=== PATIENT | male | born 1950 | race Caucasian/White ===

== ENCOUNTER 2019-03-02 05:13 | Day surgery (SDC) | payer MEDICARE, BC ==
[2019-03-02] VITALS (9 sets, daily range): BP systolic 129–154; BP diastolic 76–86
[~2019-03-02] VITALS: Ht 180.3 cm; Wt 86.5 kg
[2019-03-02] MEDS ORDERED: LISI10TA4 PO (05:36)
[2019-03-02] MEDS ORDERED: LORazepam 0.5 MG tablet PO PRN (05:40)
[2019-03-02] MEDS ORDERED: normal saline 1,000 ML IV SCH (05:40)
[2019-03-02] MEDS ORDERED: diphenhydrAMINE 25mg capsule PO PRN (05:40)
[2019-03-02 05:53] LABS: BASOPHILS # (AUTO) 0.1 X10'3 (0-0.2); BASOPHILS % (AUTO) 1.2 % (0-1); EOSINOPHILS # (AUTO) 0.5 X10'3 (0-0.9); EOSINOPHILS % (AUTO) 7.1 % (0-6); HEMATOCRIT 39.9 % (42.0-52.0); HEMOGLOBIN 14.3 g/dl (14.0-17.9); LYMPHOCYTES # (AUTO) 1.9 X10'3 (1.1-4.8); LYMPHOCYTES % (AUTO) 28.1 % (21-51); MEAN CORPUSCULAR HEMOGLOBIN 33.8 PG (27.0-31.0); MEAN CORPUSCULAR HGB CONC 35.7 g/dL (33.0-36.5); MEAN CORPUSCULAR VOLUME 94.7 FL (78-98); MEAN PLATELET VOLUME 7.3 FL (7.4-10.4); MONOCYTES # (AUTO) 0.7 X10'3 (0-0.9); MONOCYTES % (AUTO) 10.3 % (2-12); NEUTROPHILS # (AUTO) 3.5 X10'3 (1.8-7.7); NEUTROPHILS % (AUTO) 53.3 % (42-75); PLATELET COUNT 236 X10'3 (140-440); RED BLOOD COUNT 4.21 X10'6 (4.70-6.10); RED CELL DISTRIBUTION WIDTH 12.2 % (11.5-14.5); WHITE BLOOD COUNT 6.6 X10'3 (4.5-11.0)
[2019-03-02] MEDS ORDERED: LIDOcaine/PRILOcaine 5gm cream TP PRN (05:55)
[2019-03-02 05:56] LABS: ANION GAP 11 (8-16); BLOOD UREA NITROGEN 13 MG/DL (7-18); BUN/CREATININE RATIO 12.6 (5.4-32.0); CALCIUM 9.2 MG/DL (8.5-10.1); CHLORIDE 105 MMOL/L (99-107); CREATININE 1.03 MG/DL (0.60-1.10); GLUCOSE 101 MG/DL (70-104); POTASSIUM 4.2 MMOL/L (3.5-5.1); SODIUM 141 MMOL/L (135-145); TOTAL CARBON DIOXIDE 25.1 MMOL/L (24-32); eGFR 72 ML/MIN
[2019-03-02 05:59] LABS: PARTIAL THROMBOPLASTIN TIME 28 SECONDS (22-32)
[2019-03-02] MEDS ORDERED: nitroGLYCERIN-Tridil 50MG/D5W 250 ML IV ONE (06:04)
[2019-03-02] MEDS ORDERED: fentaNYL/PF 50MCG/1 ML 2ML syringe ONE (06:04)
[2019-03-02] MEDS ORDERED: midazolam 2 mg/2 ml injection ONE (06:04)
[2019-03-02] MEDS ORDERED: verapamil 2.5 mg/ml inj IV ONE (06:04)
[2019-03-02] MEDS ORDERED: heparin 1,000unit/ml 10ml vial 10 ML ONE (06:05)
[2019-03-02] MEDS ORDERED: heparin 1,000 UNITS/NS 500ml 500 ML ONE (06:05)
[2019-03-02] MEDS ORDERED: LIDOcaine 1% (10mg/ml)w/preservative injection 20ml MDV ONE (06:05)
[2019-03-02] MEDS ORDERED: iohexol 350MG/ML 100ml bottle IV ONE (06:05)
--- NOTE | 2019-03-02 07:15 | NUR ---
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 Patient laying flat for 2 hours via perc. close to the right groin. Vitals are temp. 97.8, 98% on room air, BP 139/81, HR 73, RR 16. Patient is awake and in no acute distress. Bed locked and lowered, side rails up x 2, nonskid socks on, call light in reach, and frequent rounding.
[2019-03-02] MEDS ORDERED: acetaminophen 325mg tablet PO PRN (07:30)
[2019-03-02] MEDS ORDERED: HYDROcodone/acetaminophen 5mg/325mg tablet PO PRN (07:30)
[2019-03-02] MEDS ORDERED: ondansetron/PF 4mg/2ml inj IV PRN (07:30)
[2019-03-02] MEDS ORDERED: proCHLORperazine 10 MG/2 ml inj IV PRN (07:30)
[2019-03-02] MEDS ORDERED: HYDROcodone/acetaminophen 10/325mg tab PO PRN (07:30)
[2019-03-02] MEDS ORDERED: OXAZEpam 15mg capsule PO PRN (07:30)
[2019-03-02] MEDS ORDERED: NITR0.4T51 SL (10:01)
[2019-03-02] MEDS ORDERED: METO25TA6 PO (10:01)
[2019-03-02] MEDS ORDERED: ASPI81TA52 PO (10:01)
[2019-03-02] MEDS ORDERED: ATOR40TA PO (10:01)
--- NOTE | 2019-03-02 10:11 | NUR ---
Sent a page to respiratory for PFT and ABG.
--- NOTE | 2019-03-02 11:03 | NUR ---
Sent a page to vascular letting them know that the patient's discharge is pending studies.
[2019-03-02 13:00] LABS: ABG BASE EXCESS -1.2 mmol/L (-2.0-3.0); ABG HCO3 22.3 mmol/L (22.0-26.0); ABG OXYGEN SATURATION 94.9 % (95-98); ABG PCO2 (T) 33.7 mmHg (35.0-45.0); ABG PH (T) 7.438 (7.350-7.450); ABG PO2 (T) 72.7 mmHg (83-108); ALLEN'S TEST Positive; FCOHb 1.1 % (0.5-1.5); FMetHb 0.2 % (0.3-1.12); FO2Hb 93.7 % (94-100); TOTAL HEMOGLOBIN 13.9 G/dl (14.0-17.9)
--- NOTE | 2019-03-02 14:08 | NUR ---
Rm [id number]. Patient is ready for xray. Thank you
--- NOTE | 2019-03-02 14:54 | NUR ---
Called in patient's prescriptions to [facility] on [facility].
--- NOTE | 2019-03-02 15:40 | NUR ---
Patient stable for discharge per MD orders. All instructions and paperwork reviewed with patient. Called in patient's prescription to [facility] on [address]. PIV discontinued and cannula intact. quality assurance monitor chassis discontinued. Belongings collected and sent with patient. Patient will follow up with his primary care provider. Patient picked up by private vehicle and wheeled to the lobby.
[2019-03-11] MEDS ORDERED: TURM538C PO (13:34)
[2019-03-11] MEDS ORDERED: JUICE PLUS PO (13:34)
[2019-03-11] MEDS ORDERED: [UNRECOGNIZED DRUG - CODE] PO (13:34)
== END 2019-03-02 15:40 | disposition home or self-care (01) ==
LOC: SSTAY O 05:13 → PCU 3S 07:27 → SSTAY O 15:40
PROVIDERS: ATTEND Internal Medicine Interventional Cardiology
DX: I25.10 Atherosclerotic heart disease of native coronary artery without angina pectoris (principal); R07.9 Chest pain, unspecified; R94.39 Abnormal result of other cardiovascular function study; I10 Essential (primary) hypertension; E78.00 Pure hypercholesterolemia, unspecified; R00.0 Tachycardia, unspecified; Z98.890 Other specified postprocedural states; Z79.899 Other long term (current) drug therapy; F12.90 Cannabis use, unspecified, uncomplicated; Z82.49 Family history of ischemic heart disease and other diseases of the circulatory system; Z87.81 Personal history of (healed) traumatic fracture
CPT/HCPCS: 36415; 71046; 80048; 82803; 85018; 85025; 85610; 85730; 93005; 93459; 94010; C1769; C1894; J1644; J2001; J2250; J3010; J7030; Q0163; Q9967; 36600; 93880; 93931; 93970; 99152; 99153; A4620; A6258; C1760; G0378; J3490

== ENCOUNTER 2019-03-12 05:24 | Inpatient (IN) | payer MEDICARE, BC ==
[2019-03-11 13:47] LABS: BASOPHILS # (AUTO) 0.1 X10'3 (0-0.2); BASOPHILS % (AUTO) 1.1 % (0-1); EOSINOPHILS # (AUTO) 0.2 X10'3 (0-0.9); LYMPHOCYTES # (AUTO) 1.5 X10'3 (1.1-4.8); LYMPHOCYTES % (AUTO) 20.3 % (21-51); MEAN CORPUSCULAR HEMOGLOBIN 33.6 PG (27.0-31.0); MEAN CORPUSCULAR VOLUME 95.9 FL (78-98); MEAN PLATELET VOLUME 7.6 FL (7.4-10.4); MONOCYTES # (AUTO) 0.9 X10'3 (0-0.9); NEUTROPHILS # (AUTO) 4.5 X10'3 (1.8-7.7); NEUTROPHILS % (AUTO) 62.6 % (42-75); PRE OP HEMATOCRIT 37.7 % (42.0-52.0); PRE OP HEMOGLOBIN 13.2 g/dL (14.0-17.9); PRE OP PLATELET COUNT 224 X10'3 (140-440); RED BLOOD COUNT 3.93 X10'6 (4.70-6.10); RED CELL DISTRIBUTION WIDTH 12.1 % (11.5-14.5)
[2019-03-11 13:54] LABS: CLARITY,URINE CLEAR (Clear); COLOR,URINE YELLOW (Yellow); GLUCOSE, URINE NEGATIVE (Neg); KETONES,URINE NEGATIVE (Neg); LEUKOCYTE ESTERASE ,URINE NEGATIVE (Neg); NITRITES, URINE NEGATIVE (Neg); OCCULT BLOOD,URINE NEGATIVE (Neg); PH,URINE 7.5 (4.8-8.0); PROTEIN,URINE NEGATIVE (Neg); UA COLLECTION TYPE CLN CATCH MIDSTREAM; UROBILINOGEN,URINE 0.2 E.U/dL (0.2-1.0)
[2019-03-11 13:57] LABS: PRE OP PROTIME 10.3 SECONDS (9.0-12.0)
[2019-03-11 13:59] LABS: ALBUMIN 3.9 G/DL (3.4-5.0); ALKALINE PHOSPHATASE 103 IU/L (46-116); BLOOD UREA NITROGEN 13 MG/DL (7-18); BUN/CREATININE RATIO 15.1 (5.4-32.0); CALCIUM 9.3 MG/DL (8.5-10.1); CHLORIDE 105 MMOL/L (99-107); CREATININE 0.86 MG/DL (0.60-1.10); PRE OP ALT 33 U/L (30-65); PRE OP ANION GAP 7 (8-16); PRE OP AST 22 U/L (10-37); PRE OP BILIRUB, TOTAL 0.6 MG/DL (0.0-1.0); PRE OP GLUCOSE 95 MG/DL (70-104); PRE OP POTASSIUM 4.2 MMOL/L (3.4-5.1); PRE OP SODIUM 139 MMOL/L (135-145); TOTAL CARBON DIOXIDE 26.7 MMOL/L (24-32); TOTAL PROTEIN 7.7 G/DL (6.4-8.2); eGFR 88 ML/MIN
[2019-03-11 14:04] LABS: HEMOGLOBIN A1C 5.3 % (4.5-6.2)
[2019-03-11 14:10] LABS: ABG BASE EXCESS -4.5 mmol/L (-2.0-3.0); ABG HCO3 18.2 mmol/L (22.0-26.0); ABG OXYGEN SATURATION 96.7 % (95-98); ABG PCO2 (T) 27.3 mmHg (35.0-45.0); ABG PH (T) 7.441 (7.350-7.450); ABG PO2 (T) 87.2 mmHg (83-108); ALLEN'S TEST Positive; FCOHb 0.6 % (0.5-1.5); FMetHb 0.3 % (0.3-1.12); FO2Hb 95.8 % (94-100); TOTAL HEMOGLOBIN 13.5 G/dl (14.0-17.9)
[~2019-03-12] VITALS: Ht 177.8 cm; Wt 90.2 kg
[2019-03-12] VITALS (16 sets, daily range): BP systolic 95–155; BP diastolic 49–92
[~2019-03-12 05:24] MED LIST: ASPI81TA52 PO; ATOR40TA PO; JUICE PLUS PO; LISI10TA4 PO; METO25TA6 PO; NITR0.4T51 SL; ROPIVAcaine 0.5% (5mg/ml) 30ml vial ONE; TURM538C PO; [UNRECOGNIZED DRUG - CODE] PO; lactose-reduced food (Ensure Enlive) - 237ml bottle PO ONE; ringers solution, lacted 1,000 ML IV SCH
[2019-03-12] MEDS ORDERED: cefazolin/dext.iso 2gm/100ml 100 ML IV ONE (05:30)
[2019-03-12] MEDS ORDERED: famotidine 20mg tablet PO ONE (05:30)
[2019-03-12] MEDS ORDERED: vancomycin inj 1,500 MG in normal saline 300ml IV soln IV ONE (05:30)
[2019-03-12] MEDS ORDERED: dextrose 50%-water 50ml dispensing syringe IV PRN ×2 (05:30→12:05)
[2019-03-12] MEDS ORDERED: LORazepam 2 mg/ml vial IV PRN (05:30)
[2019-03-12] MEDS ORDERED: metoprolol tartrate 12.5mg (1/2 tablet) PO ONE (05:30)
[2019-03-12] MEDS ORDERED: insulin regular, human inj. 100 UNITS in normal saline 100ml IV IV SCH ×2 (05:30)
[2019-03-12] MEDS ORDERED: gabapentin 400mg capsule PO ONE (05:30)
[2019-03-12] MEDS ORDERED: LIDOcaine 1% (10mg/ml) 2ml vial ONE (06:02)
[2019-03-12] MEDS: mupirocin 2% nasal ointment 1gm UD NS SCH ×3 (06:12→20:16)
[2019-03-12] MEDS ORDERED: protamine sulf. 10mg/ml inj. IV ONE (06:52)
[2019-03-12] MEDS ORDERED: sevoflurane 250ml liquid IH ONE (06:52)
[2019-03-12] MEDS ORDERED: nitroGLYCERIN in D5W 50mg/250ml (Tridil) infusion IV ONE (06:52)
[2019-03-12] MEDS ORDERED: DOPamine/D5W 400mg/250ml bag IV ONE (06:52)
[2019-03-12] MEDS ORDERED: nitroPRUSSIDE 20mg/NS 100mL (0.2mg/mL) VIAL IV ONE (06:52)
[2019-03-12] MEDS ORDERED: niCARDipine in NS 40mg/200ml (0.2mg/ml) IVPB IV ONE (06:52)
[2019-03-12] MEDS ORDERED: aminocaproic acid 250 MG/1 ML inj. ONE ×2 (06:52→14:00)
[2019-03-12] MEDS ORDERED: MIDAZolam 5mg/5ml vial ONE (06:58)
[2019-03-12] MEDS ORDERED: SUFENTANIL CITRATE 50 MCG/ML 2ml ampule IV ONE (06:58)
[2019-03-12] MEDS ORDERED: propofol inj 20 ML IV ONE (06:59)
[2019-03-12 07:55] LABS: ABG BASE EXCESS -4.1 mmol/L (-2.0-3.0); ABG HCO3 20.4 mmol/L (22.0-26.0); ABG OXYGEN SATURATION 99.4 % (95-98); ABG PCO2 35.6 mmHg (35.0-45.0); ABG PH 7.377 (7.350-7.450); ABG PO2 355.5 mmHg (60.0-100.0); CL (ABG) 108 mmol/L (99-107); FCOHb 0.4 % (0.5-1.5); FMetHb 0.4 % (0.3-1.12); FO2Hb 98.6 % (94-100); GLUCOSE (ABG) 86 mg/dl (70-104); IONIZED CA (ABG) 1.17 mmol/L (1.03-1.32); K (ABG) 3.9 mmol/L (3.3-5.1); NA (ABG) 137 mmol/L (135-145); TOTAL HEMOGLOBIN 11.7 G/dl (14.0-17.9)
[2019-03-12 08:00] LABS: ACT @ 1.70 U 278 SEC (193-297); ACT @ 2.84 U 390 SEC (260-420); BASELINE ACT 137 SEC (101-148); PATIENT WEIGHT 86.0k KG
[2019-03-12] MEDS ORDERED: rocuronium 10mg/ml inj IV ONE ×3 (09:02)
[2019-03-12 09:21] LABS: ABG BASE EXCESS VENOUS -4.1 mmol/L; ABG PCO2 VENOUS 38.5 mmHg; ABG PO2 VENOUS 40.2 mmHg; CL (ABG) 108 mmol/L (99-107); FHHb VENOUS 26.8 %; FMetHb VENOUS 0.1 %; FO2Hb VENOUS 72.1 %; GLUCOSE (ABG) 102 mg/dl (70-104); IONIZED CA (ABG) 1.15 mmol/L (1.03-1.32); K (ABG) 3.9 mmol/L (3.3-5.1); NA (ABG) 137 mmol/L (135-145); TOTAL HEMOGLOBIN 11.7 G/dl (14.0-17.9)
[2019-03-12 09:55] LABS: ABG BASE EXCESS VENOUS -2.6 mmol/L; ABG HCO3 VENOUS 22.1 mmol/L; ABG PCO2 VENOUS 37.8 mmHg; ABG PO2 VENOUS 40.3 mmHg; CL (ABG) 105 mmol/L (99-107); FCOHb VENOUS 1.2 %; FHHb VENOUS 24.9 %; FMetHb VENOUS 0.3 %; FO2Hb VENOUS 73.6 %; GLUCOSE (ABG) 116 mg/dl (70-104); IONIZED CA (ABG) 0.98 mmol/L (1.03-1.32); K (ABG) 4.9 mmol/L (3.3-5.1); NA (ABG) 134 mmol/L (135-145); TOTAL HEMOGLOBIN 8.9 G/dl (14.0-17.9)
[2019-03-12 10:00] LABS: ABG BASE EXCESS -1.7 mmol/L (-2.0-3.0); ABG HCO3 22.8 mmol/L (22.0-26.0); ABG OXYGEN SATURATION 99.4 % (95-98); ABG PCO2 37.1 mmHg (35.0-45.0); ABG PH 7.406 (7.350-7.450); ABG PO2 405.3 mmHg (60.0-100.0); CL (ABG) 106 mmol/L (99-107); FCOHb 0.8 % (0.5-1.5); FMetHb 0.4 % (0.3-1.12); FO2Hb 98.2 % (94-100); GLUCOSE (ABG) 117 mg/dl (70-104); IONIZED CA (ABG) 0.99 mmol/L (1.03-1.32); K (ABG) 5.4 mmol/L (3.3-5.1); NA (ABG) 133 mmol/L (135-145); TOTAL HEMOGLOBIN 8.9 G/dl (14.0-17.9)
[2019-03-12 10:30] LABS: ABG PCO2 42.9 mmHg (35.0-45.0); ABG PH 7.308 (7.350-7.450)
[2019-03-12 10:31] LABS: ABG PO2 318.9 mmHg (60.0-100.0); CL (ABG) 107 mmol/L (99-107); FCOHb 0.3 % (0.5-1.5); FMetHb 0.4 % (0.3-1.12); FO2Hb 98.3 % (94-100); GLUCOSE (ABG) 167 mg/dl (70-104); IONIZED CA (ABG) 1.06 mmol/L (1.03-1.32); K (ABG) 4.7 mmol/L (3.3-5.1); NA (ABG) 136 mmol/L (135-145); TOTAL HEMOGLOBIN 9.8 G/dl (14.0-17.9)
[2019-03-12 10:51] LABS: ABG BASE EXCESS -2.6 mmol/L (-2.0-3.0); ABG HCO3 22.8 mmol/L (22.0-26.0); ABG OXYGEN SATURATION 99.1 % (95-98); ABG PCO2 41.7 mmHg (35.0-45.0); ABG PH 7.355 (7.350-7.450); ABG PO2 262.6 mmHg (60.0-100.0); CL (ABG) 106 mmol/L (99-107); FCOHb 0.5 % (0.5-1.5); FMetHb 0.5 % (0.3-1.12); FO2Hb 98.1 % (94-100); GLUCOSE (ABG) 209 mg/dl (70-104); IONIZED CA (ABG) 1.02 mmol/L (1.03-1.32); K (ABG) 4.8 mmol/L (3.3-5.1); NA (ABG) 133 mmol/L (135-145); TOTAL HEMOGLOBIN 8.8 G/dl (14.0-17.9)
[2019-03-12 11:21] LABS: ABG BASE EXCESS VENOUS -1.9 mmol/L; ABG HCO3 VENOUS 23.6 mmol/L; ABG PCO2 VENOUS 43.6 mmHg; ABG PO2 VENOUS 49.8 mmHg; CL (ABG) 106 mmol/L (99-107); FCOHb VENOUS 0.6 %; FHHb VENOUS 16.8 %; FMetHb VENOUS 0.5 %; FO2Hb VENOUS 82.1 %; GLUCOSE (ABG) 214 mg/dl (70-104); IONIZED CA (ABG) 1.22 mmol/L (1.03-1.32); NA (ABG) 137 mmol/L (135-145); TOTAL HEMOGLOBIN 9.2 G/dl (14.0-17.9)
[2019-03-12] MEDS ORDERED: acetaminophen 1,000mg/100ml IV 100 ML IV ONE (11:43)
[2019-03-12 11:45] LABS: ACTIVATED CLOTTING TIME 114 SEC (101-148)
--- NOTE | 2019-03-12 12:00 | NUR ---
Received to room 2012, accompanied by MDs and surgical crew. Placed on ventilator, to paring machine operator, arterial line and PA line pressure monitored. Chest tubes to suction at 20 cm. Olivarez cath to gravity drainage. Dressings are dry and intact. See assessment record. All vasoactive drugs are infusing via central line.
[2019-03-12] MEDS ORDERED: magnesium 2GM in 50ml NS 50 ML IV PRN (12:05)
[2019-03-12] MEDS ORDERED: nitroGLYCERIN-Tridil 50MG/D5W 250 ML IV PRN (12:05)
[2019-03-12] MEDS ORDERED: DOPamine 400mg/D5W 250ml 250 ML IV PRN (12:05)
[2019-03-12] MEDS ORDERED: acetaminophen 325mg tablet PO PRN ×2 (12:05)
[2019-03-12] MEDS ORDERED: ondansetron/PF 4mg/2ml inj IV PRN (12:05)
[2019-03-12] MEDS ORDERED: potassium Cl 20 mEq SR tablet PO PRN (12:05)
[2019-03-12] MEDS ORDERED: pantoprazole 40 MG vial IV ONE (12:05)
[2019-03-12] MEDS ORDERED: sodium phosphate inj. 15 MMOL in dextrose 5%-water 150 ML IV PRN (12:05)
[2019-03-12] MEDS ORDERED: sodium phosphate inj. 30 MMOL in dextrose 5%-water 250 ML IV PRN (12:05)
[2019-03-12] MEDS ORDERED: morphine 4 MG/ML inj SYRINge IV PRN ×2 (12:05)
[2019-03-12] MEDS ORDERED: magnesium hydroxide 30ml (MOM) UD suspension PO PRN (12:05)
[2019-03-12] MEDS ORDERED: insulin regular, human inj. 100 UNITS in normal saline 100ml IV soln 100 ML IV SCH ×2 (12:05)
[2019-03-12] MEDS ORDERED: Neutra Phos packet PO PRN (12:05)
[2019-03-12] MEDS ORDERED: metoclopramide 5 mg/ml inj IV PRN (12:05)
[2019-03-12] MEDS ORDERED: normal saline 250ml IV soln 250 ML IV PRN (12:05)
[2019-03-12] MEDS ORDERED: niCARDipine-NS 40mg/200ml IVPB 200 ML IV PRN (12:05)
[2019-03-12 12:31] LABS: ABG BASE EXCESS -0.6 mmol/L (-2.0-3.0); ABG HCO3 24.4 mmol/L (22.0-26.0); ABG OXYGEN SATURATION 95.1 % (95-98); ABG PCO2 (T) 41.7 mmHg (35.0-45.0); ABG PH (T) 7.385 (7.350-7.450); ABG PO2 (T) 83.4 mmHg (83-108); FO2Hb 95.1 % (94-100); MINUTE VOLUME 9 L/min; PEEP 5 cm H2O; RESPIRATORY RATE 12 b/min; RESPIRATORY RATE (OBSERVED) 12 b/min; TIDAL VOLUME 500 mL
[2019-03-12 12:32] LABS: BASOPHILS % (AUTO) 0.4 % (0-1); EOSINOPHILS # (AUTO) 0.1 X10'3 (0-0.9); EOSINOPHILS % (AUTO) 0.7 % (0-6); HEMATOCRIT 31.2 % (42.0-52.0); LYMPHOCYTES # (AUTO) 0.5 X10'3 (1.1-4.8); LYMPHOCYTES % (AUTO) 5.1 % (21-51); MEAN CORPUSCULAR HEMOGLOBIN 33.8 PG (27.0-31.0); MEAN CORPUSCULAR HGB CONC 35.3 g/dL (33.0-36.5); MEAN CORPUSCULAR VOLUME 95.8 FL (78-98); MEAN PLATELET VOLUME 7.6 FL (7.4-10.4); MONOCYTES # (AUTO) 0.6 X10'3 (0-0.9); MONOCYTES % (AUTO) 5.8 % (2-12); NEUTROPHILS # (AUTO) 9.2 X10'3 (1.8-7.7); PLATELET COUNT 144 X10'3 (140-440); RED BLOOD COUNT 3.26 X10'6 (4.70-6.10); RED CELL DISTRIBUTION WIDTH 12.1 % (11.5-14.5); WHITE BLOOD COUNT 10.4 X10'3 (4.5-11.0)
[2019-03-12 12:44] LABS: ALANINE AMINOTRANSFERASE 24 U/L (12-78); ALBUMIN/GLOBULIN RATIO 1.2 (1.1-1.5); ALKALINE PHOSPHATASE 71 IU/L (46-116); ANION GAP 11 (8-16); ASPARTATE AMINO TRANSFERASE 29 U/L (10-37); BILIRUBIN,TOTAL 0.7 MG/DL (0.1-1.0); BLOOD UREA NITROGEN 11 MG/DL (7-18); CALCIUM 8.5 MG/DL (8.5-10.1); CHLORIDE 108 MMOL/L (99-107); CREATININE 0.92 MG/DL (0.60-1.10); GLUCOSE 184 MG/DL (70-104); MAGNESIUM 1.9 MG/DL (1.5-2.4); PHOSPHORUS 3.3 MG/DL (2.3-4.5); POTASSIUM 4.1 MMOL/L (3.5-5.1); SODIUM 143 MMOL/L (135-145); TOTAL CARBON DIOXIDE 24.4 MMOL/L (24-32); TOTAL PROTEIN 5.5 G/DL (6.4-8.2); eGFR 82 ML/MIN
[2019-03-12 12:51] LABS: PARTIAL THROMBOPLASTIN TIME 25 SECONDS (22-32)
[2019-03-12] MEDS: insulin Lispro (HumaLOG) vial - multi-dose SQ SCH ×2 (13:00→18:00)
[2019-03-12] MEDS: potassium Cl 20mEq/100mL bag 100 ML IV PRN ×3 (13:16→18:31)
[2019-03-12] MEDS: gabapentin 300mg capsule PO SCH ×2 (13:20→20:09)
[2019-03-12] MEDS: sodium chloride 0.45% 1,000 ML IV SCH (13:43)
[2019-03-12] MEDS: magnesium 4gm in 100ml NS 100 ML IV PRN (13:47)
[2019-03-12] MEDS ORDERED: heparin 10,000 units/1 ML INJ ONE (14:00)
[2019-03-12] MEDS ORDERED: methylPREDNISolone sod. succ. 500mg inj ONE (14:00)
[2019-03-12] MEDS ORDERED: MAGNESIUM SULFATE 4 MEQ/ML (5gm/10ml) injection ONE (14:00)
[2019-03-12] MEDS ORDERED: phenylephrine 10mg/ml inj. ONE (14:00)
[2019-03-12] MEDS ORDERED: calcium chloride 100 MG/1 ML inj IV ONE (14:00)
[2019-03-12] MEDS ORDERED: albumin (human) 25% 100 ML IV solution IV ONE (14:00)
[2019-03-12] MEDS ORDERED: potassium Cl 2 mEq/ml inj IV ONE (14:00)
[2019-03-12] MEDS ORDERED: sodium bicarbonate (8.4%) 1 mEq/ml syringe ONE (14:00)
[2019-03-12] MEDS ORDERED: LIDOcaine 2% (20 mg/ml) 5ml cardiac syringe ONE (14:00)
--- NOTE | 2019-03-12 14:27 | NUR ---
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 Pt would benefit from nutrition therapy education prior to discharge once stable. Will continue to follow. Addendum: 03/12/19 at [address] Amended: Links added.
[2019-03-12] MEDS: albumin (Human) 5% 250ml 250 ML IV PRN ×2 (15:10→16:11)
--- NOTE | 2019-03-12 16:00 | NUR ---
PA line waveform appears dampened at 35cm marking. Latanya JURADO charge nurse assessed the line and manipulated to achieve more optimal waveform. Measuring now at approx 32cm. Will continue to monitor.
[2019-03-12] MEDS: ceFAZolin 1GM/D5W- ADD-VANTAGE 50 ML IV SCH (16:02)
[2019-03-12 16:05] LABS: ABG BASE EXCESS -0.6 mmol/L (-2.0-3.0); ABG HCO3 21.7 mmol/L (22.0-26.0); ABG OXYGEN SATURATION 97.6 % (95-98); ABG PCO2 (T) 29.1 mmHg (35.0-45.0); ABG PH (T) 7.491 (7.350-7.450); ABG PO2 (T) 114.5 mmHg (83-108); FCOHb 0.3 % (0.5-1.5); FO2Hb 97.3 % (94-100); MINUTE VOLUME 12 L/min; PATIENT TEMPERATURE 37.5; PEEP 5 cm H2O; RESPIRATORY RATE (OBSERVED) 26 b/min; TIDAL VOLUME 500 mL; TOTAL HEMOGLOBIN 11.7 G/dl (14.0-17.9)
--- NOTE | 2019-03-12 16:25 | NUR ---
Updated Dr. Petty about patient. MD aware of CT output at 300 and that patient required another Albumin secondary to SBP in the 80s; patient tolerated Albumin well with improvement to the SBP in the low 100s. Okay per Dr. Petty to give one more fluid challenge if necessary and start Levophed if CO/CI okay. CO/CI 6.6 and 3.2. Patient sleepy but easily arrousable and passed weaning parameters and MD aware of blood gas; okay to extubate. MD also aware of positive nasal swab for MRSA; no changes at this time. Charge nurse notified as well.
[2019-03-12 18:17] LABS: BASOPHILS % (AUTO) 0.2 % (0-1); EOSINOPHILS % (AUTO) 0 % (0-6); HEMATOCRIT 30.1 % (42.0-52.0); HEMOGLOBIN 10.5 g/dl (14.0-17.9); LYMPHOCYTES # (AUTO) 0.3 X10'3 (1.1-4.8); LYMPHOCYTES % (AUTO) 2.1 % (21-51); MEAN CORPUSCULAR HEMOGLOBIN 33.2 PG (27.0-31.0); MEAN CORPUSCULAR HGB CONC 34.8 g/dL (33.0-36.5); MEAN CORPUSCULAR VOLUME 95.4 FL (78-98); MEAN PLATELET VOLUME 7.9 FL (7.4-10.4); MONOCYTES # (AUTO) 0.5 X10'3 (0-0.9); MONOCYTES % (AUTO) 4.1 % (2-12); NEUTROPHILS # (AUTO) 11.3 X10'3 (1.8-7.7); NEUTROPHILS % (AUTO) 93.6 % (42-75); PLATELET COUNT 151 X10'3 (140-440); RED BLOOD COUNT 3.16 X10'6 (4.70-6.10); RED CELL DISTRIBUTION WIDTH 12.3 % (11.5-14.5); WHITE BLOOD COUNT 12.1 X10'3 (4.5-11.0)
[2019-03-12 18:18] LABS: ALBUMIN 3.7 G/DL (3.4-5.0); ANION GAP 6 (8-16); BLOOD UREA NITROGEN 12 MG/DL (7-18); BUN/CREATININE RATIO 11.4 (5.4-32.0); CALCIUM 8.6 MG/DL (8.5-10.1); CHLORIDE 110 MMOL/L (99-107); CREATININE 1.05 MG/DL (0.60-1.10); GLUCOSE 126 MG/DL (70-104); MAGNESIUM 2.5 MG/DL (1.5-2.4); PHOSPHORUS 1.3 MG/DL (2.3-4.5); SODIUM 142 MMOL/L (135-145); TOTAL CARBON DIOXIDE 25.8 MMOL/L (24-32); eGFR 70 ML/MIN
--- NOTE | 2019-03-12 18:32 | NUR ---
Problems reprioritized. Patient report given, questions answered & plan of care reviewed with Neema JURADO.
[2019-03-12] MEDS: vancomycin/NS 1 GM ADD-VANTAGE 250 ML IV SCH (19:56)
[2019-03-12] MEDS ORDERED: mupirocin 2% ointment 22GM NS SCH (20:00)
[2019-03-12] MEDS: docusate sod 100mg capsule PO SCH (20:00)
[2019-03-13] VITALS (24 sets, daily range): BP systolic 98–135; BP diastolic 55–74
[2019-03-13] MEDS: HYDROcodone/acetaminophen 10/325mg tab PO PRN ×5 (00:32→16:48)
[2019-03-13] MEDS: ceFAZolin 1GM/D5W- ADD-VANTAGE 50 ML IV SCH ×4 (00:32→23:53)
[2019-03-13 03:24] LABS: PARTIAL THROMBOPLASTIN TIME 27 SECONDS (22-32)
[2019-03-13 03:27] LABS: BASOPHILS % (AUTO) 0 % (0-1); EOSINOPHILS % (AUTO) 0 % (0-6); HEMATOCRIT 27.4 % (42.0-52.0); HEMOGLOBIN 9.5 g/dl (14.0-17.9); LYMPHOCYTES # (AUTO) 0.5 X10'3 (1.1-4.8); LYMPHOCYTES % (AUTO) 3.7 % (21-51); MEAN CORPUSCULAR HEMOGLOBIN 33.4 PG (27.0-31.0); MEAN CORPUSCULAR HGB CONC 34.6 g/dL (33.0-36.5); MEAN CORPUSCULAR VOLUME 96.6 FL (78-98); MEAN PLATELET VOLUME 8.1 FL (7.4-10.4); MONOCYTES # (AUTO) 1.2 X10'3 (0-0.9); NEUTROPHILS # (AUTO) 11.7 X10'3 (1.8-7.7); NEUTROPHILS % (AUTO) 87.3 % (42-75); PLATELET COUNT 133 X10'3 (140-440); RED BLOOD COUNT 2.84 X10'6 (4.70-6.10); WHITE BLOOD COUNT 13.4 X10'3 (4.5-11.0)
[2019-03-13 03:29] LABS: ALANINE AMINOTRANSFERASE 26 U/L (12-78); ALBUMIN 3.3 G/DL (3.4-5.0); ALBUMIN/GLOBULIN RATIO 1.3 (1.1-1.5); ALKALINE PHOSPHATASE 61 IU/L (46-116); ANION GAP 7 (8-16); ASPARTATE AMINO TRANSFERASE 32 U/L (10-37); BILIRUBIN,TOTAL 0.5 MG/DL (0.1-1.0); BLOOD UREA NITROGEN 12 MG/DL (7-18); BUN/CREATININE RATIO 13.3 (5.4-32.0); CALCIUM 7.9 MG/DL (8.5-10.1); CHLORIDE 107 MMOL/L (99-107); GLUCOSE 135 MG/DL (70-104); PHOSPHORUS 5.7 MG/DL (2.3-4.5); SODIUM 139 MMOL/L (135-145); TOTAL CARBON DIOXIDE 25.2 MMOL/L (24-32); TOTAL PROTEIN 5.8 G/DL (6.4-8.2); eGFR 84 ML/MIN
--- NOTE | 2019-03-13 06:19 | NUR ---
able to sit side of the bed and get on his feet without difficulty , report given to Meme JURADO
[2019-03-13] MEDS: gabapentin 300mg capsule PO SCH ×3 (07:23→20:35)
[2019-03-13] MEDS: mupirocin 2% nasal ointment 1gm UD NS SCH ×2 (07:23→20:31)
[2019-03-13] MEDS: magnesium 4gm in 100ml NS 100 ML IV PRN (07:25)
[2019-03-13] MEDS: vancomycin/NS 1 GM ADD-VANTAGE 250 ML IV SCH ×2 (07:25→20:34)
[2019-03-13] MEDS: docusate sod 100mg capsule PO SCH ×2 (07:26→20:34)
[2019-03-13] MEDS: metoprolol tartrate 25mg tablet PO SCH ×2 (08:00→20:35)
[2019-03-13] MEDS: aspirin 81mg tab.chew PO SCH (08:00)
[2019-03-13] MEDS ORDERED: atorvastatin 10mg tablet PO SCH (08:00)
[2019-03-13] MEDS ORDERED: metoprolol tartrate 12.5mg (1/2 tablet) PO SCH (08:00)
[2019-03-13] MEDS: atorvastatin 20mg tablet PO SCH (08:00)
[2019-03-13] MEDS ORDERED: aspirin 325mg tablet, delayed-release (Ecotrin) PO SCH (08:00)
[2019-03-13] MEDS: insulin Lispro (HumaLOG) vial - multi-dose SQ SCH ×2 (09:00→13:00)
[2019-03-13] MEDS: ketorolac tromethamine 15mg/ml inj. IV SCH ×3 (10:44→20:33)
[2019-03-14] VITALS (24 sets, daily range): BP systolic 82–134; BP diastolic 47–79
[2019-03-14] MEDS: ketorolac tromethamine 15mg/ml inj. IV SCH ×4 (02:17→20:17)
[2019-03-14] MEDS: HYDROcodone/acetaminophen 10/325mg tab PO PRN ×4 (02:18→19:01)
[2019-03-14 02:57] LABS: BASOPHILS % (AUTO) 0.1 % (0-1); EOSINOPHILS % (AUTO) 0 % (0-6); HEMATOCRIT 27.3 % (42.0-52.0); HEMOGLOBIN 9.3 g/dl (14.0-17.9); LYMPHOCYTES # (AUTO) 0.9 X10'3 (1.1-4.8); MEAN CORPUSCULAR HEMOGLOBIN 33.2 PG (27.0-31.0); MEAN CORPUSCULAR HGB CONC 34.2 g/dL (33.0-36.5); MEAN CORPUSCULAR VOLUME 97.2 FL (78-98); MEAN PLATELET VOLUME 8.5 FL (7.4-10.4); MONOCYTES # (AUTO) 1.5 X10'3 (0-0.9); MONOCYTES % (AUTO) 11.5 % (2-12); NEUTROPHILS # (AUTO) 10.7 X10'3 (1.8-7.7); NEUTROPHILS % (AUTO) 81.4 % (42-75); PLATELET COUNT 124 X10'3 (140-440); RED BLOOD COUNT 2.81 X10'6 (4.70-6.10); RED CELL DISTRIBUTION WIDTH 11.9 % (11.5-14.5); WHITE BLOOD COUNT 13.2 X10'3 (4.5-11.0)
[2019-03-14] MEDS ORDERED: amiodarone 150mg/dext, iso-os 100 ML IV ONE ×2 (03:10→03:12)
[2019-03-14 03:19] LABS: ALBUMIN 3.2 G/DL (3.4-5.0); ANION GAP 3 (8-16); BLOOD UREA NITROGEN 20 MG/DL (7-18); BUN/CREATININE RATIO 18.9 (5.4-32.0); CHLORIDE 104 MMOL/L (99-107); CREATININE 1.06 MG/DL (0.60-1.10); GLUCOSE 123 MG/DL (70-104); MAGNESIUM 2.5 MG/DL (1.5-2.4); POTASSIUM 4.4 MMOL/L (3.5-5.1); SODIUM 135 MMOL/L (135-145); TOTAL CARBON DIOXIDE 27.8 MMOL/L (24-32); eGFR 69 ML/MIN
[2019-03-14] MEDS: amiodarone/D5 360MG/200ML BAG 200 ML IV SCH ×4 (03:31→20:15)
--- NOTE | 2019-03-14 04:00 | NUR ---
PATIENT ON AFIB AT 110-130 RATE , BP STABLE , MD NOTIFIED , ORDERS RECEIVED , PLACE ON NASAL CANNULA FOR O2 SATS OF 89 .
[2019-03-14] MEDS: gabapentin 300mg capsule PO SCH (07:55)
[2019-03-14] MEDS: metoprolol tartrate 25mg tablet PO SCH ×2 (07:55→20:00)
[2019-03-14] MEDS: atorvastatin 20mg tablet PO SCH (07:55)
[2019-03-14] MEDS: docusate sod 100mg capsule PO SCH ×2 (07:55→20:15)
[2019-03-14] MEDS: pantoprazole 40mg Tablet.DR PO SCH (07:56)
[2019-03-14] MEDS: mupirocin 2% nasal ointment 1gm UD NS SCH ×2 (07:57→20:15)
[2019-03-14] MEDS: aspirin 81mg tab.chew PO SCH (07:57)
[2019-03-14] MEDS ORDERED: furosemide 40mg/4ml inj IV ONE (09:10)
[2019-03-14] MEDS: sodium chloride 0.45% 1,000 ML IV SCH (12:05)
--- NOTE | 2019-03-14 19:37 | NUR ---
received sitting on chair , eating dinner , claimed feeling much better after discontinuing chest tube , compalined of incisional pain , pain meds given.
[2019-03-15] VITALS (24 sets, daily range): BP systolic 59–123; BP diastolic 34–67
[2019-03-15] MEDS: ketorolac tromethamine 15mg/ml inj. IV SCH ×2 (02:28→07:06)
[2019-03-15] MEDS: HYDROcodone/acetaminophen 10/325mg tab PO PRN ×3 (02:29→16:19)
[2019-03-15 03:10] LABS: BASOPHILS % (AUTO) 0.4 % (0-1); EOSINOPHILS # (AUTO) 0.1 X10'3 (0-0.9); EOSINOPHILS % (AUTO) 0.7 % (0-6); HEMATOCRIT 25.4 % (42.0-52.0); LYMPHOCYTES # (AUTO) 1.1 X10'3 (1.1-4.8); LYMPHOCYTES % (AUTO) 11.2 % (21-51); MEAN CORPUSCULAR HGB CONC 35.4 g/dL (33.0-36.5); MEAN CORPUSCULAR VOLUME 96.2 FL (78-98); MEAN PLATELET VOLUME 8.3 FL (7.4-10.4); MONOCYTES # (AUTO) 1.3 X10'3 (0-0.9); MONOCYTES % (AUTO) 14.2 % (2-12); NEUTROPHILS # (AUTO) 6.9 X10'3 (1.8-7.7); NEUTROPHILS % (AUTO) 73.5 % (42-75); PLATELET COUNT 117 X10'3 (140-440); RED BLOOD COUNT 2.64 X10'6 (4.70-6.10); RED CELL DISTRIBUTION WIDTH 12.2 % (11.5-14.5); WHITE BLOOD COUNT 9.4 X10'3 (4.5-11.0)
[2019-03-15 03:16] LABS: ALBUMIN 2.8 G/DL (3.4-5.0); ANION GAP 3 (8-16); BLOOD UREA NITROGEN 20 MG/DL (7-18); CALCIUM 7.8 MG/DL (8.5-10.1); CHLORIDE 101 MMOL/L (99-107); GLUCOSE 112 MG/DL (70-104); PHOSPHORUS 3.9 MG/DL (2.3-4.5); POTASSIUM 3.9 MMOL/L (3.5-5.1); SODIUM 132 MMOL/L (135-145); TOTAL CARBON DIOXIDE 28.4 MMOL/L (24-32); eGFR 74 ML/MIN
[2019-03-15] MEDS: amiodarone/D5 360MG/200ML BAG 200 ML IV SCH ×2 (03:23→08:43)
[2019-03-15] MEDS: potassium Cl 20mEq/100mL bag 100 ML IV PRN ×2 (05:54→08:44)
[2019-03-15] MEDS: mupirocin 2% nasal ointment 1gm UD NS SCH ×2 (07:06→20:00)
[2019-03-15] MEDS: pantoprazole 40mg Tablet.DR PO SCH (07:06)
[2019-03-15] MEDS: docusate sod 100mg capsule PO SCH ×2 (07:06→20:45)
[2019-03-15] MEDS: aspirin 81mg tab.chew PO SCH (07:06)
[2019-03-15] MEDS: atorvastatin 20mg tablet PO SCH (07:06)
[2019-03-15] MEDS: metoprolol tartrate 25mg tablet PO SCH ×2 (07:07→20:46)
[2019-03-15] MEDS ORDERED: magnesium 4gm in 100ml NS 100 ML IV PRN (09:20)
[2019-03-15] MEDS ORDERED: magnesium 2GM in 50ml NS 50 ML IV PRN (09:20)
[2019-03-15] MEDS ORDERED: potassium Cl 20 mEq SR tablet PO PRN (09:20)
[2019-03-15] MEDS ORDERED: potassium Cl 20mEq/100mL bag 100 ML IV PRN (09:20)
[2019-03-15] MEDS: amiodarone 200mg tablet PO SCH ×2 (09:30→20:45)
--- NOTE | 2019-03-15 12:05 | NUR ---
F/u: Pt working w/ PT during RD initial and f/u visit today; will monitor for more appropriate time prior to d/c for CABG ed since pt reports questions on diet/lifestyle per note. Addendum: 03/15/19 at [address] Amended: Links added.
--- NOTE | 2019-03-15 14:01 | NUR ---
Pt transferred to [facility]. Report given to ADRIEN Vincent. VSS upon transfer. All belongings sent with pt including phone, clothes, and wallet. Pt with 650 of UOP prior to transfer. Will continue to monitor.
--- NOTE | 2019-03-15 18:10 | NUR ---
received report from Melisa RN
[2019-03-15] MEDS: magnesium Cl slow-release 64mg tablet PO SCH (20:45)
[2019-03-15] MEDS: potassium Cl 20 mEq SR tablet PO SCH (20:45)
--- NOTE | 2019-03-15 23:00 | NUR ---
pt reported 5/10 aching pain and soreness on chest from surgical incision. offered pain medication to pt, but pt refused. will continue to monitor.
[2019-03-16 01:00] VITALS: BP 107/55
[2019-03-16] MEDS: HYDROcodone/acetaminophen 10/325mg tab PO PRN (04:00)
--- NOTE | 2019-03-16 04:47 | NUR ---
pt reported 6/10 pain on incision site. pt requested PRN pain medication. will continue to monitor.
[2019-03-16 05:55] LABS: BASOPHILS % (AUTO) 0.5 % (0-1); EOSINOPHILS # (AUTO) 0.1 X10'3 (0-0.9); EOSINOPHILS % (AUTO) 1.8 % (0-6); HEMATOCRIT 26.2 % (42.0-52.0); HEMOGLOBIN 9.2 g/dl (14.0-17.9); LYMPHOCYTES # (AUTO) 0.7 X10'3 (1.1-4.8); LYMPHOCYTES % (AUTO) 9.2 % (21-51); MEAN CORPUSCULAR HEMOGLOBIN 33.7 PG (27.0-31.0); MEAN CORPUSCULAR VOLUME 96.2 FL (78-98); MEAN PLATELET VOLUME 8.4 FL (7.4-10.4); MONOCYTES # (AUTO) 1.1 X10'3 (0-0.9); MONOCYTES % (AUTO) 14.4 % (2-12); NEUTROPHILS # (AUTO) 5.8 X10'3 (1.8-7.7); NEUTROPHILS % (AUTO) 74.1 % (42-75); PLATELET COUNT 161 X10'3 (140-440); RED BLOOD COUNT 2.73 X10'6 (4.70-6.10); WHITE BLOOD COUNT 7.9 X10'3 (4.5-11.0)
[2019-03-16 06:00] VITALS: BP 109/56
--- NOTE | 2019-03-16 06:00 | NUR ---
Patient in room [facility] 307. I have received report from ADRIEN Cabrera and had the opportunity to ask questions and assume patient care.
--- NOTE | 2019-03-16 06:00 | NUR ---
gave report to joana rosenberg
[2019-03-16 06:03] LABS: ALBUMIN 2.7 G/DL (3.4-5.0); ANION GAP 5 (8-16); BLOOD UREA NITROGEN 16 MG/DL (7-18); BUN/CREATININE RATIO 16.3 (5.4-32.0); CALCIUM 8.3 MG/DL (8.5-10.1); CHLORIDE 103 MMOL/L (99-107); CREATININE 0.98 MG/DL (0.60-1.10); GLUCOSE 106 MG/DL (70-104); MAGNESIUM 1.8 MG/DL (1.5-2.4); POTASSIUM 4.7 MMOL/L (3.5-5.1); SODIUM 134 MMOL/L (135-145); TOTAL CARBON DIOXIDE 26.3 MMOL/L (24-32); eGFR 76 ML/MIN
[2019-03-16] MEDS: pantoprazole 40mg Tablet.DR PO SCH (07:03)
[2019-03-16] MEDS ORDERED: AMIO200T61 PO (07:10)
[2019-03-16] MEDS ORDERED: DOCU100C40 PO (07:10)
[2019-03-16] MEDS ORDERED: magnesium citrate 296ml oral solution PO ONE (07:10)
[2019-03-16] MEDS ORDERED: HYDR-4353 PO (07:10)
[2019-03-16] MEDS ORDERED: diphenhydrAMINE 25mg capsule PO PRN (07:20)
[2019-03-16] MEDS: docusate sod 100mg capsule PO SCH (07:32)
[2019-03-16] MEDS: metoprolol tartrate 25mg tablet PO SCH (07:33)
[2019-03-16] MEDS: magnesium Cl slow-release 64mg tablet PO SCH (07:33)
[2019-03-16] MEDS: aspirin 81mg tab.chew PO SCH (07:33)
[2019-03-16] MEDS: potassium Cl 20 mEq SR tablet PO SCH (07:33)
[2019-03-16] MEDS: amiodarone 200mg tablet PO SCH (07:33)
[2019-03-16] MEDS: atorvastatin 20mg tablet PO SCH (07:33)
[2019-03-16 11:00] VITALS: BP 95/49
--- NOTE | 2019-03-16 13:02 | NUR ---
Called medications into [facility]. Pending discharge.
--- NOTE | 2019-03-16 13:53 | NUR ---
CABG consult: RD and technical intern visited pt at bedside to provide written CABG and Heart Healthy education with verbal review. Emphasized a low sodium and low fat diet and to focus on lean protein to support wound healing. RD provided alternative options to current diet. Pt states LBM was today, no longer feeling constipated. Will continue to monitor. Addendum: 03/16/19 at 1354 by Wing Lynnette WALTER Amended: Links added. Addendum: 03/16/19 at [address] JOSE ANGEL agree with note
--- NOTE | 2019-03-16 14:25 | NUR ---
Per MD, patient stable for discharge. All belongings gathered and sent with patient and his daughter. Prescriptions called into [facility] in [facility]. Script for [place] 10 given to patient. PIV removed, TIP intact, pt tolerated well. Discharge paperwork reviewed with and signed by patient. All questions and concerns addressed. Patient transported via WC by nursing staff to personal vehicle.
== END 2019-03-16 14:25 | disposition home health service (06) | DRG 235 ==
LOC: PAS IN 05:24 → EDSTATUS 07:30 → CICU 2S 12:11 → MED 3N 03-15 13:40
PROVIDERS: ADMIT Thoracic Surgery (Cardiothoracic Vascular Surgery); ATTEND Thoracic Surgery (Cardiothoracic Vascular Surgery)
PROC: 03BB4ZZ Excision of Right Radial Artery, Percutaneous Endoscopic Approach (ICD-10-PCS; 2019-03-12)
PROC: 02110Z9 Bypass Coronary Artery, Two Arteries from Left Internal Mammary, Open Approach (ICD-10-PCS; 2019-03-12)
PROC: 02100Z8 Bypass Coronary Artery, One Artery from Right Internal Mammary, Open Approach (ICD-10-PCS; 2019-03-12)
PROC: 5A1221Z Performance of Cardiac Output, Continuous (ICD-10-PCS; 2019-03-12)
PROC: B24BZZ4 Ultrasonography of Heart with Aorta, Transesophageal (ICD-10-PCS; 2019-03-12)
PROC: 02100AW Bypass Coronary Artery, One Artery from Aorta with Autologous Arterial Tissue, Open Approach (ICD-10-PCS; principal; 2019-03-12 06:52)
DX: I25.10 Atherosclerotic heart disease of native coronary artery without angina pectoris (principal); I50.33 Acute on chronic diastolic (congestive) heart failure; I47.9 Paroxysmal tachycardia, unspecified; I10 Essential (primary) hypertension; E78.00 Pure hypercholesterolemia, unspecified; F12.90 Cannabis use, unspecified, uncomplicated; I48.91 Unspecified atrial fibrillation; Z80.0 Family history of malignant neoplasm of digestive organs; Z90.49 Acquired absence of other specified parts of digestive tract; Z79.899 Other long term (current) drug therapy
CPT/HCPCS: 0232T; 93312; 93325; 36415; 36600; 71045; 80048; 80053; 81003; 82330; 82435; 82803; 82947; 82948; 83036; 83735; 84100; 84132; 84295; 85018; 85025; 85347; 85384; 85610; 85730; 86885; 86900; 86901; 86920; 87081; 93005; 94002; 94668; 94760; 97110; 97116; 97161; 97530; A4618; A6258; A6402; A6446; A6449; A7000; A7048; C1713; C1751; C9113; G0378; J0131; J0282; J0690; J1265; J1644; J1815; J1885; J1940; J2001; J2060; J2150; J2250; J2270; J2370; J2704; J2720; J2795; J2930; J3370; J3475; J3480; J3490; J7030; J7040; J7050; J7060; J7120; P9045; P9047; Q0163

== ENCOUNTER 2022-01-02 11:18 | Day surgery (SDC) | payer MEDICARE, BC ==
[2021-12-29 15:43] LABS: BASOPHILS # (AUTO) 0.1 X10'3 (0-0.2); BASOPHILS % (AUTO) 0.8 % (0-1); EOSINOPHILS # (AUTO) 0.2 X10'3 (0-0.9); EOSINOPHILS % (AUTO) 2.1 % (0-6); HEMATOCRIT 39.5 % (42.0-52.0); HEMOGLOBIN 13.8 g/dl (14.0-17.9); LYMPHOCYTES # (AUTO) 1.5 X10'3 (1.1-4.8); LYMPHOCYTES % (AUTO) 17.9 % (21-51); MEAN CORPUSCULAR HEMOGLOBIN 33.1 PG (27.0-31.0); MEAN CORPUSCULAR HGB CONC 34.9 g/dL (33.0-36.5); MEAN PLATELET VOLUME 7.4 FL (7.4-10.4); MONOCYTES # (AUTO) 0.9 X10'3 (0-0.9); MONOCYTES % (AUTO) 11.2 % (2-12); NEUTROPHILS # (AUTO) 5.6 X10'3 (1.8-7.7); PLATELET COUNT 209 X10'3 (140-440); RED BLOOD COUNT 4.15 X10'6 (4.70-6.10); RED CELL DISTRIBUTION WIDTH 12.3 % (11.5-14.5); WHITE BLOOD COUNT 8.2 X10'3 (4.5-11.0)
[2021-12-29 15:51] LABS: APTT 34 SECONDS (22-32)
[2021-12-29 15:55] LABS: ALBUMIN 3.7 G/DL (3.4-5.0); ANION GAP 10 (8-16); BLOOD UREA NITROGEN 16 MG/DL (7-18); BUN/CREATININE RATIO 15.8 (5.4-32.0); CALCIUM 8.7 MG/DL (8.5-10.1); CHLORIDE 105 MMOL/L (99-107); CREATININE 1.01 MG/DL (0.60-1.10); GLUCOSE 95 MG/DL (70-104); POTASSIUM 3.7 MMOL/L (3.5-5.1); SODIUM 140 MMOL/L (135-145); TOTAL CARBON DIOXIDE 25.1 MMOL/L (24-32); eGFR 73 ML/MIN
[~2022-01-02 11:18] MED LIST changes: +AMIO200T61 PO; +DOCU100C40 PO; +HYDR-4353 PO; -LISI10TA4 PO; +LOP25T PO; -METO25TA6 PO; -NITR0.4T51 SL; -ROPIVAcaine 0.5% (5mg/ml) 30ml vial ONE; -lactose-reduced food (Ensure Enlive) - 237ml bottle PO ONE; -ringers solution, lacted 1,000 ML IV SCH
[2022-01-02 11:30] VITALS: BP 125/74
--- NOTE | 2022-01-02 11:30 | NUR ---
Message sent to Dr. Spicer notified of pt being in SR. Awaiting response.
--- NOTE | 2022-01-02 12:05 | NUR ---
Dr. Spicer responded, okay to DC pt.
== END 2022-01-02 12:10 | disposition home or self-care (01) ==
LOC: SSTAY O 11:18
PROVIDERS: ATTEND Student in an Organized Health Care Education/Training Program
DX: I48.0 Paroxysmal atrial fibrillation (principal); Z53.8 Procedure and treatment not carried out for other reasons; I25.10 Atherosclerotic heart disease of native coronary artery without angina pectoris; G47.33 Obstructive sleep apnea (adult) (pediatric); I10 Essential (primary) hypertension; Z79.899 Other long term (current) drug therapy; Z98.890 Other specified postprocedural states
CPT/HCPCS: 36415; 80048; 85025; 85610; 85730; 93005; A4620; J7030